=== PATIENT | female | born 1985 | race Caucasian/White ===

== ENCOUNTER 2018-11-30 02:25 | Emergency (ER) | payer OTHER, SELFPAY ==
[2018-11-30 02:30] VITALS: BP 133/79; PULSE 72; RESP 18; TEMP 36.4; O2SAT 100; BMI 33.3
--- NOTE | 2018-11-30 02:34 | ED.NAVMDI ---
HPI - Nausea/Vomiting/Diarrhea General Chief complaint: Abdominal Pain Stated complaint: ABD PAIN/PASSED OUT/NAUSEA Time Seen by Provider: 11/30/18 02:31 Source: patient Mode of arrival: ambulatory Limitations: no limitations History of Present Illness HPI Narrative: 33-year-old otherwise healthy female here for evaluation of nausea vomiting and diarrhea and also passing out. She is camping here in the local area. She was with family. She states that she has only been drinking bottled water. Has been eating the same food as everyone else except for last evening when she had a hot dog which no one else had. She states that she woke up from her sleep with lower abdominal pain and cramping. She states that was fairly intense. She woke up her because she felt like she needed to go to the bathroom. When she sat up she stated that she felt like she was going to pass out. Her states that she fell forward. He stated that she was out for approximately 1.5 minutes. She did urinate on herself. Her states that she did not have any shaking episodes during this time. When she woke up she was alert and oriented. no prior history of seizures. Upon arrival here to the emergency department patient states that she was no longer nauseous but did have lower abdominal cramping. Related Data Previous Rx's Medication Instructions Recorded ondansetron HCl [Zofran] 4 mg PO Q6-8H PRN #14 tab 11/30/18 Review of Systems Constitutional Denies chills, Denies fever(s), Denies headache(s) and Denies weakness ENT Ears, Nose, Mouth, and Throat: Denies vertigo, Denies dizziness and Denies headache(s) Cardiovascular Denies chest pain, Reports syncope and Denies dyspnea Respiratory Denies dyspnea Gastrointestinal Gastrointestinal: Reports abdominal pain, Denies melena, Denies constipation, Reports cramping, Reports diarrhea, Reports nausea and Reports vomiting Genitourinary Denies dysuria and Denies vaginal discharge Musculoskeletal Denies myalgias and Denies arthralgias Integumentary/Breasts Denies rash Neurologic Denies vertigo, Denies dizziness, Reports syncope, Denies headache(s), Denies convulsions, Denies seizure-like activity and Denies weakness Hematologic/Lymphatic Denies easy bleeding and Denies easy bruising Allergic/Immunologic Denies urticaria [facility] Medical History Healthy adult (Acute) Social History marital status: lives independently: Yes Social History marital status: lives independently: Yes Exam Initial Vital Signs Initial Vital Signs: Vital Signs Temperature 97.6 F 11/30/18 02:30 Pulse Rate 72 11/30/18 02:30 Respiratory Rate 18 11/30/18 02:30 Blood Pressure 133/79 11/30/18 02:30 Pulse Oximetry 100 11/30/18 02:30 Const General: cooperative, comfortable, well developed, well groomed and No acute distress Orientation: alert, awake and oriented x3 HENMT Head: normal to inspection and normocephalic Nose: external nose normal Face and sinus: normal facial exam Mouth: oral mucosae normal Resp Effort & Inspection: normal respiratory effort Auscultation: clear to auscultation bilaterally Cardio Rate: regular rate GI Inspection: non-distended Palpation: soft, No firm, No guarding and No tender Skin Lesions: no lesions Rashes: no rashes Neuro General: alert, awake and oriented x3 Cognition: normal cognition Speech: speech normal Motor: muscle tone normal throughout Sensory Exam: no sensory deficits noted Extrem General: normal to inspection and capillary refill normal Psych Appearance: grossly normal and well kempt Scores GCS Jeffrey coma scale eye opening: Spontaneous Fritch coma scale verbal response: Orientated Jeffrey coma scale motor response: Obey commands Jeffrey coma scale total score: 15 Course Orders Ordered: ED Orders 11/30/18 02:32 Complete Blood Count AUTO DIFF Stat Comprehensive Metabolic Panel Stat Lipase Stat EKG-12 Lead Stat Ondansetron HCl (Zofran Odt Prepack) 1 bottle MISC SEEINSTR ONE Stop: 11/30/18 03:48 Discontinued Medications Sodium Chloride (Normal Saline 0.9%) 1,000 mls @ 1,000 mls/hr IV BOLUS ONE Stop: 11/30/18 03:30 Vital Signs - 8 hr 11/30/18 02:30 Temperature 97.6 F Pulse Rate 72 Respiratory Rate 18 Blood Pressure 133/79 Pulse Oximetry 100 MDM - Nausea/Vomiting/Diarrhea ECG Data Attestation: I personally reviewed and interpreted this ECG as follows: Prior ECG tracings: not available for review Interpretation: Sinus rhythm Ventricular rate is 61 Normal axis Normal QRS Normal QTC No ST T wave changes MDM Narrative Medical decision making narrative: Patient was able to tolerate oral intake here in the emergency department. Has a benign abdominal exam. The episode that she had where she passed out and not sound like seizure-like activity. She did not appear to have any postictal state. She has a normal neurologic exam here in the emergency department. Will hold on CT scan for now. I do suspect that this was a vagal reaction. No indication for antibiotics. She did tolerate oral intake here in the emergency department. Will send home with Zofran and return precautions. Both her and her family expressed understanding and agreement plan. Discharge Plan Departure Patient Disposition: Home Clinical Impression: Nausea & vomiting Qualifiers: Vomiting type: unspecified Vomiting Intractability: non-intractable Qualified Code(s): R11.2 - Nausea with vomiting, unspecified Diarrhea Qualifiers: Diarrhea type: unspecified type Qualified Code(s): R19.7 - Diarrhea, unspecified Syncope Qualifiers: Syncope type: vasovagal syncope Qualified Code(s): R55 - Syncope and collapse Instructions: DI for Syncope in Adults (Fainting), Diarrhea Activity Restrictions/Additional Instructions: Increase your fluid intake. Eat a bland diet and advance as tolerated. Return to the emergency department for any new or worsening symptoms. Prescriptions: New ondansetron HCl [Zofran] 4 mg tablet 4 mg PO Q6-8H PRN (Reason: nausea and vomiting) Qty: 14 RF: 0
[2018-11-30] MEDS: ONDANSETRON 4 MG ODT PREPACK 1 BOTTLE MISC (04:01)
[2018-11-30 04:09] VITALS: BP 115/80; PULSE 81; RESP 16; O2SAT 97
== END 2018-11-30 04:17 | disposition home or self-care (01) ==
PROVIDERS: Emergency Provider Emergency Medicine
DX: R11.2 Nausea with vomiting, unspecified (principal); R55 Syncope and collapse; R19.7 Diarrhea, unspecified
CPT/HCPCS: 93005; 99282; 99284